=== PATIENT | female | born 1950 | race Hispanic/Latino ===

== ENCOUNTER 2022-09-23 16:27 | Emergency (ER) | payer MEDICARE, OTHER ==
[~2022-09-23] VITALS: Ht 160 cm; Wt 79.4 kg
[2022-09-23] MEDS ORDERED: TETANUS/DIPHTHERIA TOX ADULT 0.5 ML SYR IM ONE (17:15)
[2022-09-23] MEDS ORDERED: FENTANYL CITRATE/PF 100MCG/2 ML INJ IV ONE (19:30)
[2022-09-23] MEDS ORDERED: BUPIVACAINE HCL 0.5% 10ML MPF VIAL INJ ONE (19:30)
[2022-09-23] MEDS ORDERED: DOXYCYCLINE HY100 MG PO (20:45)
[2022-09-23] MEDS ORDERED: HYDROCODON-ACE1 EA11 PO (20:45)
[2022-09-23 21:18] VITALS: BP 140/72
== END 2022-09-23 21:14 | disposition home or self-care (01) ==
LOC: ER 17:00
DX: S61.217A Laceration without foreign body of left little finger without damage to nail, initial encounter (principal); S63.237A Subluxation of proximal interphalangeal joint of left little finger, initial encounter; W01.0XXA Fall on same level from slipping, tripping and stumbling without subsequent striking against object, initial encounter; Y93.01 Activity, walking, marching and hiking; Y92.89 Other specified places as the place of occurrence of the external cause; I10 Essential (primary) hypertension; E03.9 Hypothyroidism, unspecified
CPT/HCPCS: 12001; 26770; 70450; 73130; 73140; 90471; 90714; 99284; J3010